=== PATIENT | male | born 1950 | race Hispanic/Latino ===

== ENCOUNTER 2022-02-20 06:44 | Day surgery (SDC) | payer MEDICARE ==
[2022-02-18 12:39] VITALS: BP 178/76
[2022-02-18 14:41] LABS: BASOPHILS % (AUTO) 0.4 % (0.0-5.0); HEMATOCRIT 48.5 % (42-54); LYMPHOCYTES % (AUTO) 28.1 % (21.0-51.0); MEAN CORPUSCULAR HEMOGLOBIN 29.4 pg (27.0-33.0); MEAN CORPUSCULAR HGB CONC 33.8 g/dL (32.0-36.0); MEAN CORPUSCULAR VOLUME 87.1 fL (79-99); MONOCYTES % (AUTO) 12.5 % (3.0-13.0); NEUTROPHILS % (AUTO) 55.6 % (40.0-77.0); PLATELET COUNT (AUTO) 175 K/uL (130-400); RED BLOOD CELL COUNT(AUTO) 5.57 MIL/uL (4.50-6.20); RED CELL DISTRIBUTION WIDTH 13.9 % (11.0-15.5); WHITE BLOOD COUNT (AUTO) 5.3 K/uL (4.8-10.8)
[2022-02-18 14:46] LABS: CREATININE 1.1 mg/dL (0.5-1.5)
[2022-02-20] VITALS (10 sets, daily range): BP systolic 106–152; BP diastolic 54–96
[~2022-02-20] VITALS: Ht 170.2 cm; Wt 75.3 kg
[~2022-02-20 06:44] MED LIST: ALFU10TA9 PO; AMOX1TAB16 PO; ASPI-1443 PO; ATOR20TA65 PO; CARV6.25 PO; HYDR12.530 PO; LISI10TA24 PO; NITR0.4T50 SL
[2022-02-20] MEDS ORDERED: LACTATED RINGERS 1000ML 0 ML IV ONE (07:01)
[2022-02-20] MEDS ORDERED: GENTAMICIN 80 MG/NS 100 ML PB 100 ML IV SCH (08:00)
[2022-02-20] MEDS ORDERED: CEFTRIAXONE 1G VIAL IVP ONE (08:00)
[2022-02-20] MEDS ORDERED: DIAZEPAM 5 MG TABLET ONE ×2 (08:37→08:49)
[2022-02-20] MEDS ORDERED: LACTATED RINGERS 1000ML 1,000 ML IV ONE (08:54)
[2022-02-20] MEDS ORDERED: MIDAZOLAM HCL 1 MG/ML 2ML VIAL ONE (11:10)
[2022-02-20] MEDS ORDERED: MEPERIDINE-PF 25 MG/ML SYG ONE ×2 (11:18)
[2022-02-20] MEDS ORDERED: LIDOCAINE HCL 2% PF 20 ML JEL DISP.SYRIN MM ONE (11:21)
[2022-02-20] MEDS ORDERED: FENTANYL CITRATE PF 50 MCG/1 ML 2ML VIAL ONE (11:26)
== END 2022-02-20 12:44 | disposition home or self-care (01) ==
LOC: DAH 06:44
PROVIDERS: ATTEND Urology
DX: R97.20 Elevated prostate specific antigen [PSA] (principal); R35.1 Nocturia; N41.8 Other inflammatory diseases of prostate; I10 Essential (primary) hypertension; Z98.890 Other specified postprocedural states; Z79.899 Other long term (current) drug therapy; Z79.01 Long term (current) use of anticoagulants
CPT/HCPCS: 36415; 55700; 76872; 76942; 80048; 85025; 87635; 93005; A4215 ×2; A4221; A4222; A4223; A4649; A4663; A6260; C9803; J0696; J1580 ×2; J2175 ×2; J2250; J3010; J7120 ×2